=== PATIENT | female | born 1985 | race Caucasian/White ===

== ENCOUNTER 2017-05-19 21:18 | Emergency (ER) | payer OTHER ==
[2017-05-19] VITALS (8 sets, daily range): BP systolic 77–131; BP diastolic 55–65; PULSE 82–136; RESP 16–18; TEMP 97.7; O2SAT 95–98
[~2017-05-19] VITALS: Ht 175.3 cm; Wt 79.6 kg
[2017-05-19] MEDS ORDERED: SODIUM CHLOR 0.9% 1000 ML INJ 1,000 ML IV SCH (21:33)
--- NOTE | 2017-05-19 21:40 | PD ---
HPI Chief Complaint: Allergic/Adverse Reaction Time Seen by Provider: 21:30 Travel History International Travel<30 days: No Contact w/Intl Traveler<30days: No Traveled to known affect area: No History of Present Illness HPI The patient is a 32-year-old female that was stung by ants at approximately 8: 30 PM tonight. Shortly thereafter she began swelling over her entire body. She has redness which is slightly pruritic over the trunk, both arms and part of both legs. She denies any wheezing or shortness of breath. She denies any chest pain. She denies any exposures to food, medications or other possible allergens at the same time. FORMERLY [facility], [facility] Social History Tobacco Use: No Allergies-Medications (Allergen,Severity, Reaction): Coded Allergies: No Known Allergies (Unverified , 05/19/17) Reported Meds & Prescriptions Reported Meds & Active Scripts Active Diphenhydramine (Diphenhydramine HCl) 25 Mg Cap 25 Mg PO Q8HR Zantac (Ranitidine HCl) 150 Mg Tab 150 Mg PO BID Prednisone 50 Mg Tab 50 Mg PO BID PRN Epipen 2-Kiel Inj (Epinephrine) 0.3 Mg/0.3 Ml Pfpen 0.3 Mg IM ONCE PRN Review of Systems Except as stated in HPI: all other systems reviewed are Neg Physical Exam Narrative GENERAL: The patient is alert, oriented 3 in moderate apparent distress with her generalized skin rash. She is in no respiratory distress. SKIN: Focused skin assessment warm/dry. There are number of small erythematous papules consistent with bite dorantes on the patient's feet. No vesicles are noted. HEAD: Atraumatic. Normocephalic. EYES: Pupils equal and round. No scleral icterus. No injection or drainage. ENT: No nasal bleeding or discharge. Mucous membranes pink and moist. NECK: Trachea midline. No JVD. CARDIOVASCULAR: Regular rate and rhythm. No murmur appreciated. RESPIRATORY: No accessory muscle use. Clear to auscultation. Breath sounds equal bilaterally. GASTROINTESTINAL: Abdomen soft, non-tender, nondistended. Hepatic and splenic margins not palpable. MUSCULOSKELETAL: No obvious deformities. No clubbing. No cyanosis. No edema. NEUROLOGICAL: Awake and alert. No obvious cranial nerve deficits. Motor grossly within normal limits. Normal speech. PSYCHIATRIC: Appropriate mood and affect; insight and judgment normal. Data Data Orders Basic Metabolic Panel (Bmp) (05/19/17 21:33) Complete Blood Count With Diff (05/19/17 21:33) Ecg Monitoring (05/19/17 21:33) Iv Access Insert/Monitor (05/19/17 21:33) Oximetry (05/19/17 21:33) Diphenhydramine Inj (Benadryl Inj) (05/19/17 21:45) Methylprednisolone So Succ Inj (Solumedr (05/19/17 21:45) Famotidine Inj (Pepcid Inj) (05/19/17 21:45) Sodium Chlor 0.9% 1000 Ml Inj (Ns 1000 M (05/19/17 21:33) Sodium Chloride 0.9% Flush (Ns Flush) (05/19/17 21:45) Epinephrine (1:1000) Inj (Adrenalin (1:1 (05/19/17 21:45) Urinalysis - C+S If Indicated (05/19/17 21:33) Ed Urine Pregnancytest Poc (05/19/17 21:33) Labs Laboratory Tests Test 05/19/17 05/19/17 21:35 21:50 White Blood Count 10.2 TH/MM3 Red Blood Count 4.99 MIL/MM3 Hemoglobin 14.8 GM/DL Hematocrit 43.5 % Mean Corpuscular Volume 87.1 FL Mean Corpuscular Hemoglobin 29.7 PG Mean Corpuscular Hemoglobin 34.0 % Concent Red Cell Distribution Width 12.1 % Platelet Count 283 TH/MM3 Mean Platelet Volume 9.0 FL Neutrophils (%) (Auto) 43.8 % Lymphocytes (%) (Auto) 45.0 % Monocytes (%) (Auto) 10.2 % Eosinophils (%) (Auto) 0.7 % Basophils (%) (Auto) 0.3 % Neutrophils # (Auto) 4.5 TH/MM3 Lymphocytes # (Auto) 4.6 TH/MM3 Monocytes # (Auto) 1.0 TH/MM3 Eosinophils # (Auto) 0.1 TH/MM3 Basophils # (Auto) 0.0 TH/MM3 CBC Comment DIFF FINAL Differential Comment Sodium Level 142 MEQ/L Potassium Level 3.6 MEQ/L Chloride Level 110 MEQ/L Carbon Dioxide Level 21.9 MEQ/L Anion Gap 10 MEQ/L Blood Urea Nitrogen 13 MG/DL Creatinine 1.20 MG/DL Estimat Glomerular Filtration 51 ML/MIN Rate Random Glucose 109 MG/DL Calcium Level 8.8 MG/DL Urine pH 6.0 Urine Protein NEG mg/dL Urine Glucose (UA) NEG mg/dL Urine Ketones NEG mg/dL Urine Occult Blood LARGE Urine Nitrite NEG Urine Bilirubin NEG Urine Leukocyte Esterase NEG MDM Medical Decision Making Medical Screen Exam Complete: Yes Emergency Medical Condition: Yes Medical Record Reviewed: Yes Differential Diagnosis Allergic reaction, cellulitishighly unlikely, allergic reaction to something other than ant bites/stings Narrative Course By exclusion, the patient appears to have an allergic reaction to an ant sting. She had no other exposure and developed her symptoms almost immediately after the stings on her feet. Diagnosis Primary Impression: Allergic reaction Additional Instructions: As we discussed, the next thing from it and could be much worse and we will write the epinephrine pen. The prednisone is taken one tablet twice daily for 4 days followed by one tablet daily for 4 days. If you have no residual reaction at that time you can discontinue all other medicines as well. Follow- up with an station superintendent. Scripts Diphenhydramine 25 Mg Cap25 Mg PO Q8HR #30 CAP Ref 0 Prov:Joby Vazquez MD 05/19/17 Ranitidine (Zantac)150 Mg [id number] Mg PO BID #60 TAB Ref 0 Prov:Joby Vazquez MD 05/19/17 Prednisone 50 Mg Tab50 Mg PO BID PRN (X 4 days than daily X 4 days) #12 TAB Ref 0 Prov:Joby Vazquez MD 05/19/17 Epinephrine Inj (Epipen 2-Kiel Inj)0.3 Mg/0.3 Ml Pfpen0.3 Mg IM ONCE PRN ( ALLERGIC REACTION) #1 PACK Ref 0 Prov:Joby Vazquez MD 05/19/17 Joby Vazquez MD May 19, 2017 21:40
[2017-05-19] MEDS ORDERED: diphenhydrAMINE HCL 50 MG/ML VIAL IVP ONE (21:45)
[2017-05-19] MEDS ORDERED: EPINEPHrine HCL (1:1000) 1 MG/ML VIAL IM ONE (21:45)
[2017-05-19] MEDS ORDERED: SODIUM CHLORIDE 0.9% FLUSH 10 ML FLUSH IV FLUSH PRN (21:45)
[2017-05-19] MEDS ORDERED: methylPREDNISolone SOD SUCC 125 MG/2 ML VIAL IVP ONE (21:45)
[2017-05-19] MEDS ORDERED: FAMOTIDINE 20 MG/2 ML VIAL IV PUSH ONE (21:45)
[2017-05-19 21:50] LABS: AUTOMATED NEUTROPHIL # 4.5 TH/MM3 (1.8-7.7); BASOPHIL % 0.3 % (0.0-2.0); EOSINOPHIL # 0.1 TH/MM3 (0-0.4); EOSINOPHIL % 0.7 % (0.0-4.0); HEMATOCRIT 43.5 % (35.0-46.0); LYMPHOCYTE # 4.6 TH/MM3 (1.0-4.8); MEAN CELL VOLUME 87.1 FL (80.0-100.0); MEAN CORPUSCULAR HEMOGLOBIN 29.7 PG (27.0-34.0); MONO % 10.2 % (0.0-8.0); NEUT % 43.8 % (16.0-70.0); PLATELET COUNT 283 TH/MM3 (150-450); RED BLOOD COUNT 4.99 MIL/MM3 (4.00-5.30); RED CELL DISTRIBUTION WIDTH 12.1 % (11.6-17.2); WHITE BLOOD COUNT 10.2 TH/MM3 (4.0-11.0)
[2017-05-19 21:56] LABS: HEMO FLAGS DIFF FINAL
[2017-05-19 22:09] LABS: POTASSIUM 3.6 MEQ/L (3.5-5.1)
[2017-05-19 22:12] LABS: BICARBONATE 21.9 MEQ/L (21.0-32.0)
[2017-05-19] MEDS ORDERED: ZANT150T2 PO (22:17)
[2017-05-19] MEDS ORDERED: DIPH25CA PO (22:17)
[2017-05-19] MEDS ORDERED: EPIP0.3I IM (22:17)
[2017-05-19] MEDS ORDERED: PRED50 PO (22:17)
[2017-05-19 22:20] LABS: BLOOD, URINE LARGE (NEG); GLUCOSE,URINE NEG (NEG); KETONE, URINE NEG (NEG); NITRITE,URINE NEG (NEG)
[2017-05-19 22:22] LABS: URINE COLOR PINK (YELLW/STRAW)
[2017-05-19 22:25] LABS: COMMENT (UR) CULT NOT INDICATED; CULTURE IF INDICATED CULT NOT INDICATED; RBC, URINE 100-200 /hpf (0-3); WBC, URINE 0-2 /hpf (0-5)
[2017-05-19] MEDS ORDERED: VITATAB56 PO (22:27)
[2017-05-19] MEDS ORDERED: MULTTAB67 PO (22:27)
== END 2017-05-19 23:13 | disposition home or self-care (01) ==
LOC: PHED 21:18
DX: T78.40XA Allergy, unspecified, initial encounter (principal); L53.9 Erythematous condition, unspecified; L29.9 Pruritus, unspecified; R60.9 Edema, unspecified; W57.XXXA Bitten or stung by nonvenomous insect and other nonvenomous arthropods, initial encounter
CPT/HCPCS: 80048; 81001; 84703; 85025; 96372; 96374; 96375; 99284; J0171; J1200; J2930; J7030; 96361